=== PATIENT | female | born 1930 | race Caucasian/White ===

== ENCOUNTER → 2017-01-25 | Outpatient (CLI) | payer OTHER, MEDICARE ==
[~2017-01-25] MED LIST: ACTOS30 M1 PO; ALPRAZOLAM1 M1 PO; ALPRAZOLAM1 MG PO; AMLODIPINE10 M1 PO; AVINZA30 M1 PO; AVINZA45 MG PO; BAYER ASPIRIN C81 MG PO; CALCIUM WITH D1 CTB PO; CENTRUM SILVER1 TA1 PO; CEPHALEXIN500 MG PO; FENOFIBRATE145 MG PO; FUROSEMIDE 20MG20 MG PO; GABAPENTIN300 MG PO; HCTZ/TRIAMTEREN1 CAP PO; IMIPRAMINE25 MG PO; IPRATROPIUM BROM3 M2 IH; LASIX 40MG. TAB40 MG PO; LEVOTHROID0.075 MG PO; LIPITOR40 MG PO; LISINOPRIL 10MG10 MG PO; LISINOPRIL 20MG20 MG PO; METFORMIN500 MG PO; METOPROLOL SUCC25 M1 PO; MIRALAX17 GM/DOSE PO; PANTOPRAZOLE SO40 MG PO; PERCOCET 10 MG1 EACH PO; PERCOCET 5/3251 EACH PO; POTASSIUM CHLO20 ME2 PO; PROMETHAZINE HC25 M1 PO; RANITIDINE HCL300 M1 PO; ROPINIROLE HYDRO1 MG PO; SIMVASTATIN20 MG PO; STOOL SOFTENER240 MG PO; SURFAK 240MG C240 MG PO; TIZANIDINE4 MG PO; TRICOR145 MG PO
[2017-01-25 09:50] LABS: BUN 11 mg/dL (7-18); GFR (ESTIMATED) 80 ML/MIN (59-)
--- NOTE | 2017-01-29 10:17 | RADIOLOGY REPORT PS360 ---
MRI-BRAIN W/WO HISTORY: TONIC-CLONIC SEIZURE DISORDERpatient had grand mal seizures 3 times per month. Seizures do not last long. Also history of dizziness previous surgery to remove meningioma. Had 2 strokes during surgery. Patient Age: 86 years: Female Ordering Physician: James Perry MD TECHNIQUE: Precontrast Multiplanar FLAIR, T1, T2 weighted images along with axial diffusion/ADC imaging performed on 1.5 T. Siemens, MRI. Postcontrast imaging [id number] mL ProHance T1-weighted images axial & coronal plane performed . COMPARISON :None available FINDINGS This is a difficult scan with patient reportedly having difficulty laying on the table due to back pain Large area of encephalomalacia & volume loss along the Right anterior cerebral artery distribution. With evidence of postsurgical changes at superior frontal lobe region., With Superior right frontal craniotomy noted With this there is fluid density volume loss, severe encephalomalacia throughout basically following right anterior cerebral artery distribution- extending from the frontal lobe along the right aspect of the falx, and continuing posteriorly back the right parietal lobe.. . Only Small amount of frontal lobe cortex remains at the floor of right anterior cranial fossa. The volume loss in this region results in prominent asymmetric enlargement of the body of right lateral ventricle.. In addition note prominent diffuse small vessel deep white matter ischemic changes throughout the cerebral hemispheres. Additional prominent prominent high signal gliotic changes surrounding margins of this large right anterior cerebral artery infarct. These changes extend into the anterior external capsule for example ( I would speculated the resected meningioma was likely at the anterior right falx, likely region of right anterior cerebral artery which is resulted in this pattern & outcome). There is diffuse cerebral atrophy also noted.. Generous Perivascular spaces bilaterally could also reflect underlying hypertension.. Posterior fossa appears intact & satisfactory.. The CP angles are clear. IACs unremarkable.. There is some minor increased signal at the medial aspect of the left mastoid air cells this inferior to the left IAC, which may reflect a minor mastoid effusion extending towards the left petrous apex. Nonspecific. Doubt contributor to dizziness but noted and considered.. The postcontrast images show no abnormal enhancement along course of either seventh or eighth nerve... Nor elsewhere within the posterior fossa. . Cerebellum, мария & brainstem appear well-maintained and satisfactory fourth ventricle unremarkable. Normal cranial cervical junction. The sella appears normal. Atrophy yields a prominent suprasellar cistern. Diffusion images show no acute or recent infarct... Blood sensitive image set shows no acute blood.. Paranasal sinuses and orbits unremarkable. Postcontrast images show no abnormal areas of enhancement at the right frontal lobe or elsewhere. No evidence of recurrent meningioma orEnhancing mass lesion. IMPRESSION 1. Craniotomy defect right frontal lobe from previous resected meningioma. No evidence of recurrent meningioma or mass elsewhere.. No abnormal areas of enhancement . 2.. 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 Prominent small vessel deep white matter ischemic changes cerebral hemispheres bilaterally. Also recommend additional gliosis surrounding the old infarct on right 4. The above all appear to be old findings with no acute ischemia nor new mass lesion. No Enhancing lesions.We will attempt to obtain old studies to confirm this impression. 5. Scant left mastoid air cell thickening/mastoid effusion just inferior to the left IAC. Barely evident. Doubt of significance but noted
== END ==
LOC: RAD 08:57
PROVIDERS: Family Medicine
DX: G40.909 Epilepsy, unspecified, not intractable, without status epilepticus (principal)
CPT/HCPCS: A9576